=== PATIENT | female | born 1970 ===

== ENCOUNTER 2020-12-08 14:33 | Emergency (ER) | payer BC | END 2020-12-08 15:42 | disposition left against medical advice (07) | LOC: CSHERS 14:33 | DX: Z53.21 Procedure and treatment not carried out due to patient leaving prior to being seen by health care provider (principal) ==

== ENCOUNTER 2023-04-15 21:38 | Emergency (ER) | payer BC ==
[~2023-04-15 21:38] MED LIST: Iopamidol 300 61% 100 ML VIAL FS ONE
[2023-04-15 22:10] LABS: Bilirubin Neg (Negative); Blood, Urine 10 (Negative); Clarity Clear (Clear); Glucose, Urine (Dipstick) Normal (Negative); Ketone, Urine 5 mg/dL (Negative); Leukocyte 25 (Negative); Nitrite Negative (Negative); Protein, Urine (Dipstick) 30 mg/dl (Neg-Trace); Urobilinogen Normal mg/dL (Less than 2)
[2023-04-15 22:19] LABS: #Eosinphils 0.1 10x3/uL (0.0-0.5); #Monocytes 0.4 10x3/uL (0.0-1.1); %Basophils 0.8 % (0.0-2.0); %Eosinophils 1.2 % (0.0-6.0); %Lymphocytes 31.1 % (18.0-47.0); %Monocytes 8.4 % (0.0-10.0); %Neutrophils 58.3 % (40.0-75.0); Hematocrit 43.5 % (34.9-44.5); Hemoglobin 14.6 g/dL (12.0-15.5); Mean Corpuscular HGB CONC 33.6 g/dL (32.0-36.0); Mean Corpuscular Hemoglobin 31.1 pg (27.0-33.0); Mean Corpuscular Volume 92.8 fl (81.6-98.3); Mean Platelet Volume 9.4 fl (7.4-10.4); Platelet Count 161 10x3/uL (150-450); RBC Distribution Width 14.3 % (11.5-14.5); Red Blood Cell (RBC) Count 4.69 10x6/uL (3.90-5.03); White Blood Cell (WBC) Count 5.1 10x3/uL (3.5-10.5)
[2023-04-15 22:33] LABS: ALT (SGPT) 111 U/L (8-55); AST (SGOT) 169 U/L (5-34); Albumin 5.3 g/dL (3.5-5.0); Alkaline Phosphatase 87 U/L (40-110); Anion Gap 21 mmol/L (10-20); BUN (Urea Nitrogen) 7 mg/dL (9.8-20.1); Bilirubin, Total 0.5 mg/dL (0.2-1.2); Calc. Creatinine Clearance 0 mL/min (70-130); Calcium 10.1 mg/dL (7.8-10.44); Carbon Dioxide 27 mmol/L (22-29); Chloride 100 mmol/L (98-107); Estimated GFR 77; Globulin 3.2 g/dL (2.4-3.5); Glucose 121 mg/dL (70-105); Potassium 3.7 mmol/L (3.5-5.1); Protein, Total 8.5 g/dL (6.0-8.3); Sodium 144 mmol/L (136-145)
[2023-04-15 22:39] LABS: Troponin I Less than 0.010 ng/mL (< 0.028)
[2023-04-15 22:47] LABS: Bacteria/HPF Rare-Few HPF (None Seen); CAUTI Indications for Culture Dysuria,urgency,freq; RBC/HPF 0-3 HPF (0-3); Squamous Epithelial 0-3 HPF (0-3); WBC/HPF 0-3 HPF (0-3)
[2023-04-15 22:49] LABS: Urine Culture Reflex No No
[2023-04-15] MEDS ORDERED: Aspirin 325 mg Enteric Coated Tablet ONE (22:55)
[2023-04-15] MEDS ORDERED: diphenhydrAMINE 50 MG/ML VIAL ONE (23:22)
== END 2023-04-16 00:46 | disposition home or self-care (01) ==
LOC: CSHERS 21:38
DX: R07.89 Other chest pain (principal); R80.9 Proteinuria, unspecified; F17.210 Nicotine dependence, cigarettes, uncomplicated
CPT/HCPCS: 71045; 71260; 80053; 81001; 83690; 84484; 85025; 93005; 96361; 96374; J1200; Q9967

== ENCOUNTER 2023-04-16 04:07 | Inpatient (IN) | payer BC ==
[2023-04-16] MEDS ORDERED: Diazepam 10 MG/2 ML SYRINGE ONE (04:37)
[2023-04-16] MEDS ORDERED: Ondansetron PF 4 MG/2 ML Vial ONE (04:37)
[2023-04-16 04:42] LABS: #Monocytes 0.3 10x3/uL (0.0-1.1); #Neutrophils 2.6 10x3/uL (1.5-8.4); %Eosinophils 0.7 % (0.0-6.0); %Lymphocytes 25.4 % (18.0-47.0); %Neutrophils 64.9 % (40.0-75.0); Hematocrit 44.6 % (34.9-44.5); Hemoglobin 14.5 g/dL (12.0-15.5); Mean Corpuscular HGB CONC 32.5 g/dL (32.0-36.0); Mean Corpuscular Hemoglobin 30.3 pg (27.0-33.0); Mean Corpuscular Volume 93.3 fl (81.6-98.3); Mean Platelet Volume 9.9 fl (7.4-10.4); Platelet Count 153 10x3/uL (150-450); RBC Distribution Width 14.1 % (11.5-14.5); Red Blood Cell (RBC) Count 4.78 10x6/uL (3.90-5.03)
[2023-04-16 05:05] LABS: Alcohol 85.4 mg/dL (Less than 10); Anion Gap 23 mmol/L (10-20); BUN (Urea Nitrogen) 6 mg/dL (9.8-20.1); Calc. Creatinine Clearance 0 mL/min (70-130); Calcium 10.7 mg/dL (7.8-10.44); Carbon Dioxide 24 mmol/L (22-29); Chloride 99 mmol/L (98-107); Estimated GFR 90; Glucose 91 mg/dL (70-105); Potassium 3.6 mmol/L (3.5-5.1); Sodium 142 mmol/L (136-145)
[2023-04-16] MEDS ORDERED: Senokot S 8.6-50 MG TAB PO PRN (06:08)
[2023-04-16] MEDS ORDERED: Guaifenesin DM 100-10/5 ML UDCUP PO PRN (06:08)
[2023-04-16] MEDS ORDERED: Calcium Carbonate 500 MG ChewTAB PO PRN (06:08)
[2023-04-16] MEDS ORDERED: Lorazepam 2 MG/ML VIAL SLOW IVP PRN ×2 (06:10)
[2023-04-16 06:11] LABS: Amphetamine Not Detected (NotDetected); Barbiturates Screen Not Detected (NotDetected); Benzodiazepine Screen Not Detected (NotDetected); Cocaine Metabolite Screen Not Detected (NotDetected); Methadone Not Detected (NotDetected); Methamphetamine Not Detected (NotDetected); Opiate Screen Not Detected (NotDetected); Oxycodone Screen Not Detected (NotDetected); Phencyclidine (PCP) Not Detected (NotDetected); THC/Cannabinoid Screen Not Detected (NotDetected); Tricyclic Screen Not Detected (NotDetected)
[2023-04-16 06:26] VITALS: BMI 28.7
[2023-04-16 06:35] LABS: CK (CPK) 524 U/L (29-168); Magnesium 1.8 mg/dL (1.6-2.6); Phosphorus 3.8 mg/dL (2.3-4.7)
[2023-04-16] MEDS ORDERED: Promethazine HCl 12.5 MG, Admixture Fee 1 EACH in Sodium Chloride 0.9% 50 ML IVPB SCH (06:45)
[2023-04-16] MEDS ORDERED: Potassium Chloride 20 MEQ TAB PO SCH (06:45)
[2023-04-16] MEDS: Ondansetron PF 4 MG/2 ML Vial IVP PRN (07:23)
[2023-04-16] MEDS: Lactated Ringer's 1,000 ML IV SCH ×2 (08:02→16:50)
[2023-04-16] MEDS: Famotidine/PF 20 mg/2ml Vial SLOW IVP SCH ×2 (08:09→20:16)
[2023-04-16] MEDS: Thiamine HCl 200 MG/2 ML VIAL SLOW IVP SCH (08:09)
[2023-04-16] MEDS: Gabapentin 100 MG CAP PO SCH (08:10)
[2023-04-16] MEDS: Escitalopram Oxalate 10 mg Tablet PO SCH (08:10)
[2023-04-16] MEDS: Multivitamins, Adult 10 ML, Folic Acid 1 MG, Thiamine HCl 100 MG in Dextrose 5 %-0.45 %... IV SCH (08:24)
[2023-04-16] MEDS ORDERED: cloNIDine 0.1 MG TAB PO PRN (09:52)
[2023-04-16] MEDS: chlordiazePOXIDE HCl 5 MG CAP PO SCH ×3 (10:35→20:16)
[2023-04-16] MEDS: Lorazepam 1 MG TAB PO PRN ×4 (12:34→23:25)
[2023-04-16] MEDS: Acetaminophen 325 MG TAB PO PRN (20:17)
[2023-04-17] MEDS: Ondansetron PF 4 MG/2 ML Vial IVP PRN (04:40)
[2023-04-17 05:14] LABS: #Eosinphils 0.1 10x3/uL (0.0-0.5); #Monocytes 0.4 10x3/uL (0.0-1.1); #Neutrophils 2.1 10x3/uL (1.5-8.4); %Basophils 0.3 % (0.0-2.0); %Eosinophils 2.2 % (0.0-6.0); %Lymphocytes 28.8 % (18.0-47.0); %Monocytes 10.2 % (0.0-10.0); %Neutrophils 58.5 % (40.0-75.0); Hematocrit 43.1 % (34.9-44.5); Hemoglobin 14.2 g/dL (12.0-15.5); Mean Corpuscular HGB CONC 32.9 g/dL (32.0-36.0); Mean Corpuscular Volume 94.1 fl (81.6-98.3); Mean Platelet Volume 9.7 fl (7.4-10.4); Platelet Count 135 10x3/uL (150-450); RBC Distribution Width 13.7 % (11.5-14.5); Red Blood Cell (RBC) Count 4.58 10x6/uL (3.90-5.03); White Blood Cell (WBC) Count 3.6 10x3/uL (3.5-10.5)
[2023-04-17 05:21] LABS: ALT (SGPT) 72 U/L (8-55); AST (SGOT) 75 U/L (5-34); Albumin 4.5 g/dL (3.5-5.0); Alkaline Phosphatase 72 U/L (40-110); Anion Gap 17 mmol/L (10-20); BUN (Urea Nitrogen) 10 mg/dL (9.8-20.1); Bilirubin, Direct 0.4 mg/dL (0.1-0.3); Calc. Creatinine Clearance 101 mL/min (70-130); Calcium 9.7 mg/dL (7.8-10.44); Carbon Dioxide 26 mmol/L (22-29); Chloride 101 mmol/L (98-107); Estimated GFR 96; Glucose 86 mg/dL (70-105); Magnesium 1.8 mg/dL (1.6-2.6); Potassium 3.7 mmol/L (3.5-5.1); Protein, Total 7.6 g/dL (6.0-8.3); Sodium 140 mmol/L (136-145)
[2023-04-17] MEDS: Multivitamins, Adult 10 ML, Folic Acid 1 MG, Thiamine HCl 100 MG in Dextrose 5 %-0.45 %... IV SCH (06:46)
[2023-04-17] MEDS: Acetaminophen 325 MG TAB PO PRN (07:12)
[2023-04-17] MEDS: Thiamine HCl 200 MG/2 ML VIAL SLOW IVP SCH (07:12)
[2023-04-17] MEDS: Gabapentin 100 MG CAP PO SCH (08:56)
[2023-04-17] MEDS: Famotidine/PF 20 mg/2ml Vial SLOW IVP SCH (08:57)
[2023-04-17] MEDS: chlordiazePOXIDE HCl 5 MG CAP PO SCH ×2 (08:57→16:27)
[2023-04-17] MEDS ORDERED: Lorazepam 1 MG TAB PO PRN (09:48)
[2023-04-17] MEDS: Escitalopram Oxalate 10 mg Tablet PO SCH (09:51)
[2023-04-17] MEDS ORDERED: Lisinopril 2.5 MG TAB PO SCH (10:00)
[2023-04-17] MEDS ORDERED: cloNIDine 0.1 MG TAB PO SCH (12:15)
[2023-04-17 17:15] VITALS: BP 133/97; TEMP 98.5
[2023-04-18] MEDS ORDERED: Lisinopril 2.5 MG TAB PO SCH (09:00)
[2023-04-18] MEDS ORDERED: Lorazepam 1 MG TAB PO PRN (09:48)
[2023-04-19] MEDS ORDERED: Lorazepam 0.5 MG TAB PO PRN (09:48)
== END 2023-04-17 17:00 | disposition home or self-care (01) | DRG 897 ==
LOC: CSHERS 04:07 → CSHTELE 06:21
PROVIDERS: ADMIT Student in an Organized Health Care Education/Training Program; ATTEND Nurse Practitioner Acute Care
DX: F10.239 Alcohol dependence with withdrawal, unspecified (principal); F32.A Depression, unspecified; R74.01 Elevation of levels of liver transaminase levels; E86.0 Dehydration; G62.9 Polyneuropathy, unspecified; F17.210 Nicotine dependence, cigarettes, uncomplicated; I10 Essential (primary) hypertension; Z98.890 Other specified postprocedural states; Z88.2 Allergy status to sulfonamides; Z88.5 Allergy status to narcotic agent; Z79.899 Other long term (current) drug therapy
CPT/HCPCS: 36415; 71045; 71260; 80048; 80053; 80076; 80306; 80307; 81001; 82550; 83690; 83735; 84100; 84484; 85025; 87086; 93005; 96361; 96374; 96375; J1200; J1650; J2060; J2405; J2550; J3360; J3411; J7042; J7120; Q9967; S0028